=== PATIENT | male | born 1950 | race Caucasian/White ===

== ENCOUNTER 2023-10-19 11:35 | Inpatient (IN) | payer OTHER ==
--- OUTSIDE RECORDS SUMMARY | 2023-10-19 11:38 | XMS REPORT | Clinical Summary ---
Author Name Unknown Organization [facility] Address [address] [place] [address] Care Team Providers Care Machine Tool Technology Instructor Name Role Phone Petra Faustin Primary Care Provider [phone] Allergies Active Allergy Reactions Criticality Noted Date Comments Aspirin 10/02/2018 Iodinated Contrast Media Hives,Rash,Swelling Low 11/22/1985 Iodine 10/02/2018 Other - Food Shortness Of Breath,Swelling,Rash High 09/03/2000 Peanut derivatives Shellfish Containing Products 03/02/2022 Joint pain Medications Medication Sig Dispensed Refills Start Date End Date Status rosuvastatin (CRESTOR) 10 mg tablet Take 10 mg by mouth at bedtime. 0 Active warfarin (COUMADIN) 3 mg tablet Take 3 mg by mouth 3 (three) times a day. 0 Active telmisartan (MICARDIS) 40 mg tablet Take 40 mg by mouth daily. 0 Active multivitamin capsule Take 1 capsule by mouth daily. 0 Active Active Problems Problem Noted Date Diagnosed Date Personal history of colonic polyp 12/17/2018 Overview: Added automatically from request for surgery [id number] Screening colonoscopy 10/02/2018 Immunizations Name Administration Dates Next Due Moderna SARS-CoV-2 Vaccination 12/12/2021,2020,11/12/2020,10/18/2020 Surgical History Surgery Date Site/Laterality Comments COLONOSCOPY 09/10/2007 - 09/09/2008 At an outside facility CARDIAC VALVE REPLACEMENT 09/10/2005 - 09/09/2006 OTHER SURGICAL HISTORY Artificial heart valve PA COLONOSCOPY FLX DX W/COLLJ SPEC WHEN PFRMD 12/06/2018 N/A Procedure: DIAGNOSTIC FLEXIBLE COLONOSCOPY PROXIMAL TO SPLENIC FLEXURE; Surgeon: Jaime Estrada MD; Location: MAIN ENDOSCOPY; Service: GASTROENTEROLOGY EYE SURGERY PILONIDAL CYST DRAINAGE 1972 PA COLONOSCOPY FLX DX W/COLLJ SPEC WHEN PFRMD 05/16/2022 N/A Procedure: DIAGNOSTIC FLEXIBLE COLONOSCOPY PROXIMAL TO SPLENIC FLEXURE; Surgeon: Jaime Estrada MD; Location: MAIN ENDOSCOPY; Service: GASTROENTEROLOGY Medical History Medical History Date Comments Hypertension 11/23/2007 Hyperlipidemia 11/23/2003 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 Obstructive sleep apnea Pneumonia Encounter for blood transfusion Family History Medical History Relation Name Comments Kidney cancer Brother Bridger lafleur Prostate cancer Brother Bridger lafleur Relation Name Status Comments Brother Bridger lafleur Social History Tobacco Use Types Packs/Day Years Used Date Smoking Tobacco: Former Cigarettes 0.5 10 0 11/22/1969 - 11/23/1979 Smokeless Tobacco: Never Alcohol Use Standard Drinks/Week Comments Yes 0 (1 standard drink = 0.6 oz pur e alcohol) Sex and Gender Information Value Date Recorded Sex Assigned at Male 12/18/2021 9:13 AM CDT Gender Identity Male 12/18/2021 9:13 AM CDT Sexual Orientation Straight 02/08/2022 11 :53 AM CDT Job Start Date Occupation Industry Not on file Not on file Not on file Obstetrics History Plan of Treatment Upcoming Encounters Date Type Department Care Team Description 05/19/2025 Hospital Encounter [facility] [address] [place] [address], 5th [place] [address] Jaime Estrada MD [facility] [place] [address] Scheduled Procedures Name Priority Associated Diagnoses Date/Ti me DIAGNOSTIC FLEXIBLE COLONOSC OPY PROXIMAL TO SPLENIC FLEXURE Personal history of colonic polyp Health Maintenance Due Date Last Done Comments COVID-19 Vaccination (5 20 23-24 season) 2023 12/12/2021, 07/11/2021, 11/12/2020, Additional history exists Advance Directives Documents on File Type Date Recorded Patient Tuckpointer Expl anation Advance Directives: Living Will 12/09/2018 Directive to Physici ans and Family or Surrogates-Living Will Advance Directives: Medical Power of Sheet Metal Worker Helper 12/09/2018 Medical Power of Att orney Care Teams Machine Tool Technology Instructor Relationship Specialty Start Date End Date Petra Faustin [address] [place] [address] PCP - General 10/02/18
[2023-10-19] MEDS ORDERED: NA CHLORIDE 0.9% 1,000 ML ONE ×2 (13:08→20:28)
[2023-10-19] MEDS ORDERED: PANTOPRAZOLE 40 MG INJ ONE (13:08)
[2023-10-19 13:36] LABS: Absolute Lymphocytes (CBC) 1.7 K/uL (0.7-4.9); Hematocrit 32.3 % (39.6-49.0); Lymphocytes % 14.6 % (15.3-44.8); MCV 89.3 fL (80-100); MPV 9.2 fL (7.6-11.3); Platelets 247 thou/uL (152-406); RBC Red Blood Cell Count 3.62 M/uL (4.33-5.43)
[2023-10-19 13:41] LABS: Protime INR 1.98
[2023-10-19 13:44] LABS: Albumin 3.5 g/dL (3.4-5.0); Bilirubin Total 0.5 mg/dL (0.2-1.0); Potassium 4.3 mEq/L (3.5-5.1)
--- NOTE | 2023-10-19 14:09 | RAD REPORT ---
EXAM DESCRIPTION: CT - Abdomen Pelvis Wo Contrast - 10/19/2023 1:54 pm CLINICAL HISTORY: Abdominal pain. ABD PAIN COMPARISON: CT ABD PELVIS W CONTRAST dated 08/03/2007 TECHNIQUE: CT imaging of the abdomen and pelvis was performed without contrast. Solid organ, bowel a nd vascular assessment is limited due to lack of IV and oral contrast. All CT scans are performed using dose optimization technique as appropriate and may include automated exposure control or mA/KV adjustment according to patient size. FINDINGS: The lower lung duffy are clear. The liver, spleen, pancreas, adrenal glands and right kidney are within normal limits for a limited n on-contrast examination.8 cm left renal cyst, benign in appearance. No bowel obstruction, free air, free fluid or abscess. Moderate stool is present throughout the colon . Diverticulosis coli sigmoid colon. The appendix is normal. Mild mucosal and wall thickening of rect um. The osseous structures are within normal limits. IMPRESSION: Mild rectal wall thickening and mucosal thickening could be related to proctitis. No pne umatosis coli. Follow-up colonoscopy could be useful to further evaluate. Sigmoid diverticulosis coli. A limited non-contrast examination was performed as detailed.
[2023-10-19 14:42] LABS: Specific Gravity 1.027 (1.005-1.030); Urine Bacteria <20 /HPF (<20); Urine Bilirubin NEGATIVE (Negative); Urine Blood 3+ (OVER) (Negative); Urine Clarity Extremely Turbid (Clear); Urine Color Light-Orange (Yellow); Urine Glucose NEGATIVE (Negative); Urine Mucus Slight /HPF (None Seen); Urine Protein 1+ (Negative); Urine RBC >50 /HPF (None Seen); Urine Urobilinogen 1+ (Normal); Urine pH 5.5 (5.0-7.0)
--- NOTE | 2023-10-19 15:37 | EDPHYS ---
Physician Documentation [facility] Name: Nadia Lafleur Age: 73 yrs Sex: Male : 1950 Arrival Date: 10/19/2023 Time: 11:35 Bed 19 Private MD: ED Physician Evaristo Pleitez HPI: 10/19 12:14 This 73 yrs old Male presents to ER via Unassigned with complaints of Rectal ec2 Bleeding. 12:14 Patient arrives today for evaluation of rectal bleeding. Reports that he has been ec2 experiencing several days of rectal bleeding he describes as bright red blood per rectum. Patient reports minimal abdominal pain, he reports he is on Lovenox as well as warfarin, he is bridging over to his warfarin. He recently had a biopsy of his prostate which is why he was off of his medication. Patient also has a history of a artificial heart valve. Reports some occasional lightheadedness as well.. Historical: - Allergies: 13:20 Aspirin; mb9 13:20 peanut oil; mb9 13:20 Contrast dye; mb9 - Home Meds: 13:20 warfarin 4 mg Oral tablet 1 tab daily [Active]; telmisartan 40 mg oral tablet 1 tab mb9 daily [Active]; rosuvastatin 10 mg oral tablet 1 tab daily [Active]; - PMHx: 13:20 Hypertensive disorder; mb9 - PSHx: 13:20 Bicuspid Valve; mb9 - Immunization history:: Adult Immunizations up to date. - Social history:: Smoking status: Patient denies any tobacco usage or history of. ROS: 12:14 Constitutional: as per hpi ec2 Exam: 12:14 Constitutional: GEN: NAD Head: atraumatic Eyes: EOMI Ears: External ears are ec2 normal. CV: Tachycardia LUNGS: no respiratory distress ABD: non-distended, soft, nontender, not guarding, not rigid SKIN: no evidence of rashes MSK: no evidence of trauma NEURO: moves all extremities equally Vital Signs: 12:51 BP 102 / 74; Pulse 132; Resp 20; Temp 98.5(O); Pulse Ox 96% on R/A; hb 13:22 BP 116 / 66; Pulse 110; Resp 16; Pulse Ox 100% on R/A; Weight 113.4 kg; Height 6 ft. 2 mb9 in. ; 14:44 BP 117 / 62; Pulse 99; Resp 18; Pulse Ox 100% on R/A; mb9 16:05 BP 102 / 71; Pulse 106; Resp 16; Pulse Ox 100% ; mb9 17:00 BP 98 / 62; Pulse 115; Resp 18; Pulse Ox 99% on R/A; mb9 18:57 BP 117 / 75; Pulse 114; Resp 18; Pulse Ox 98% on R/A; mb9 19:30 BP 111 / 61; Pulse 117; Resp 19; Pulse Ox 98% on R/A; Pain 0/10; tm6 20:30 BP 119 / 64; Pulse 111; Resp 19; Pulse Ox 99% on R/A; tm6 21:50 BP 117 / 61; Pulse 113; Resp 13; Temp 98.4(TE); Pulse Ox 98% on R/A; Pain 0/10; tm6 21:55 BP 120 / 69; Pulse 115; Resp 17; Temp 98.4(TE); Pulse Ox 99% on R/A; tm6 22:00 BP 119 / 62; Pulse 114; Resp 14; Temp 98.2(TE); Pulse Ox 98% on R/A; tm6 22:15 BP 121 / 77; Pulse 117; Resp 12; Temp 98(TE); Pulse Ox 98% on R/A; tm6 13:22 Body Mass Index 32.10 (113.40 kg, 187.96 cm) mb9 19:30 Pain Scale: Adult tm6 21:50 Pain Scale: Adult tm6 MDM: 12:06 Patient medically screened. ec2 12:14 Data reviewed: vital signs. ED course: Patient arrives today for rectal bleeding as ec2 well as lightheadedness. Examination remarkable for a reassuring abdominal examination, does have some tachycardia noted. Will obtain lab work, CT imaging, type and screen. Currently considering diverticulosis, brisk upper GI bleed. Additionally considering anemia. Will give the patient Protonix as well.. 14:25 ED course: CBC shows slight anemia with hemoglobin 11.1, metabolic profile is ec2 reassuring. INR is 1.98. CT imaging shows sigmoid diverticulosis. This to be consistent with the patient's rectal bleeding. . 15:35 ED course: On reassessment patient reports improvement in his symptoms, does have some ec2 anemia, does have diverticulosis as well as the initial tachycardia, will admit the patient for reassessment and GI consultation. Patient is followed by Dr. Gayle, he I called him however he is out of town and will admit to the hospitalist. Discussed case with hospitalist, pending admission.. 10/19 12:14 Order name: CBC with Diff; Complete Time: 14:24 ec2 10/19 12:14 Order name: CMP; Complete Time: 14:24 ec2 10/19 12:14 Order name: Lipase; Complete Time: 14:24 ec2 10/19 12:14 Order name: Urinalysis w/ reflexes; Complete Time: 15:02 ec2 10/19 12:14 Order name: Type And Screen ec2 10/19 12:16 Order name: PT-INR; Complete Time: 14:24 ec2 10/19 12:16 Order name: Ptt, Activated; Complete Time: 14:24 ec2 10/19 14:55 Order name: Urine Culture EDMS 10/19 17:14 Order name: Basic Metabolic Panel EDMS 10/19 17:14 Order name: Basic Metabolic Panel EDMS 10/19 17:14 Order name: Basic Metabolic Panel EDMS 10/19 17:14 Order name: Basic Metabolic Panel EDMS 10/19 17:14 Order name: Basic Metabolic Panel EDMS 10/19 17:14 Order name: Basic Metabolic Panel EDMS 10/19 17:14 Order name: CBC with Automated Diff EDMS 10/19 17:14 Order name: CBC with Automated Diff EDMS 10/19 17:14 Order name: CBC with Automated Diff EDMS 10/19 17:14 Order name: CBC with Automated Diff EDMS 10/19 17:14 Order name: CBC with Automated Diff EDMS 10/19 17:14 Order name: CBC with Automated Diff EDMS 10/19 17:14 Order name: Magnesium EDMS 10/19 17:14 Order name: Magnesium EDMS 10/19 17:14 Order name: Magnesium EDMS 10/19 17:14 Order name: Magnesium EDMS 10/19 17:14 Order name: Magnesium EDMS 10/19 17:14 Order name: Magnesium EDMS 10/19 17:14 Order name: Phosphorus EDMS 10/19 17:14 Order name: Phosphorus EDMS 10/19 17:14 Order name: Phosphorus EDMS 10/19 17:14 Order name: Phosphorus EDMS 10/19 17:14 Order name: Phosphorus EDMS 10/19 17:14 Order name: Phosphorus EDMS 10/19 19:45 Order name: CBC with Diff ap3 10/19 20:06 Order name: FFP kdr 10/19 20:06 Order name: PRBC kdr 10/19 20:29 Order name: CBC with Automated Diff EDMS 10/19 13:55 Order name: Abdomen ; Complete Time: 14:24 EDMS 10/19 17:14 Order name: CONS Physician Consult EDMS 10/19 12:14 Order name: IV Saline Lock; Complete Time: 13:19 ec2 10/19 12:14 Order name: Labs collected and sent; Complete Time: 13:19 ec2 Administered Medications: 13:19 Drug: NS 0.9% IV 1000 ml IV at 1 bolus Per protocol; 1000 mL bolus Route: IV; Rate: 1 mb9 bolus; Site: right antecubital; 15:13 Follow up: Response: No adverse reaction mb9 13:19 Drug: Pantoprazole IVP 80 mg IVP once Route: IVP; Site: right antecubital; mb9 15:13 Follow up: Response: No adverse reaction mb9 20:39 Drug: NS 0.9% IV 1000 ml IV at 1 bolus Per protocol; 1000 mL bolus Route: IV; Rate: 1 tm6 bolus; Site: right antecubital; 20:39 Drug: Phytonadione IM 10 mg IM once Route: IM; Site: left deltoid; tm6 Disposition Summary: 10/19/23 15:36 Hospitalization Ordered Notes: Hospitalization Status: Inpatient Admission ec2 Condition: Stable ec2 Problem: new ec2 Symptoms: have improved ec2 Bed/Room Type: Standard ec2 Provider: Srinath Nix(10/19/23 16:03) ec2 Location: Intensive Care Unit(10/19/23 22:14) vc1 Room Assignment: 2-(10/20/23 02:26) vc1 Diagnosis - Diverticulosis of large intestine without perforation or abscess with bleeding ec2 - Anemia, unspecified ec2 Forms: - Medication Reconciliation Form ec2 - SBAR form ec2 - Leadership Thank You Letter ec2 Signatures: Dispatcher [employer] [facility] Zeke Mars MD MD kdr Botello, Elizabeth eb Calcote, Vanessa, RN RN vc1 Ida Daniel, RN RN mb9 Evaristo Pleitez MD MD ec2 Olamide Kaur RN RN tm6 Corrections: (The following items were deleted from the chart) 13:55 12:14 Abdomen Pelvis W Con+CT.RAD.BRZ ordered. EDMS EDMS 15:39 15:35 ED course: On reassessment patient reports improvement in his symptoms, does have ec2 some anemia, does have diverticulosis as well as the initial tachycardia, will admit the patient for reassessment and GI consultation. Discussed case with Dr. Gayle, his primary care doctor will admit the patient for continued cares.. ec2 16:03 15:36 J Carlos Gayle ec2 ec2 17:26 15:36 ec2 eb 22:14 15:36 Telemetry/MedSurg (Inpatient) ec2 vc1 22:14 17:26 207 eb vc1 10/20 02:26 02 22:14 vc1 vc1
--- NOTE | 2023-10-19 15:37 | ER ---
Nurse's Notes [facility] Name: Nadia Lafleur Age: 73 yrs Sex: Male : 1950 Arrival Date: 10/19/2023 Time: 11:35 Bed 19 Private MD: Diagnosis: Diverticulosis of large intestine without perforation or abscess with bleeding;Anemia, unspecified Presentation: 10/19 12:51 Chief complaint: Blood in stool x 3 days, dizzy last night. Had prostate biopsy a week hb ago, blood in urine stopped 4 days after. Taking Lovenox. 12:51 Coronavirus screen: At this time, the client does not indicate any symptoms associated hb with coronavirus-19. Ebola Screen: No symptoms or risks identified at this time. Initial Sepsis Screen: Does the patient meet any 2 criteria? No. Patient's initial sepsis screen is negative. Does the patient have a suspected source of infection? No. Patient's initial sepsis screen is negative. Risk Assessment: Do you want to hurt yourself or someone else? Patient reports no desire to harm self or others. Onset of symptoms was October 17, 2023. 12:51 Method Of Arrival: Ambulatory hb 12:51 Acuity: PATRICIA 2 hb Historical: - Allergies: 13:20 Aspirin; mb9 13:20 peanut oil; mb9 13:20 Contrast dye; mb9 - Home Meds: 13:20 warfarin 4 mg Oral tablet 1 tab daily [Active]; telmisartan 40 mg oral tablet 1 tab mb9 daily [Active]; rosuvastatin 10 mg oral tablet 1 tab daily [Active]; - PMHx: 13:20 Hypertensive disorder; mb9 - PSHx: 13:20 Bicuspid Valve; mb9 - Immunization history:: Adult Immunizations up to date. - Social history:: Smoking status: Patient denies any tobacco usage or history of. Screenin:26 [facility] ED Fall Risk Assessment (Adult) History of falling in the last 3 months, mb9 including since admission No falls in past 3 months (0 pts) Confusion or Disorientation No (0 pts) Intoxicated or Sedated No (0 pts) Impaired Gait No (0 pts) Mobility Assist Device Used No (0 pt) Altered Elimination No (0 pt) Score/Fall Risk Level 0 - 2 = Low Risk Oriented to surroundings, Maintained a safe environment, Educated pt \T\ family on fall prevention, incl call for assistance when getting out of bed. Abuse screen: Denies threats or abuse. Nutritional screening: No deficits noted. Tuberculosis screening: No symptoms or risk factors identified. 16:10 [facility] ED Fall Risk Assessment (Adult) History of falling in the last 3 months, mb9 including since admission Yes- physiologic fall (2 pts) Confusion or Disorientation No (0 pts) Intoxicated or Sedated No (0 pts) Impaired Gait No (0 pts) Mobility Assist Device Used Yes (1 pt) Altered Elimination No (0 pt) Score/Fall Risk Level 3 or more points = High Risk Oriented to surroundings, Maintained a safe environment, Educated pt \T\ family on fall prevention, incl call for assistance when getting out of bed, Hourly rounding (assess needs \T\ fall precautionary measures) done. Assessment: 13:25 General: Appears in no apparent distress. Behavior is calm, cooperative. Pain: Denies mb9 pain. Neuro: Bradford Agitation-Sedation Scale (RASS): 0 - Alert and Calm Level of Consciousness is awake, alert, obeys commands, Oriented to person, place, time, situation, Appropriate for age. Neuro: Reports dizziness. Cardiovascular: Heart tones S1 S2 present Patient's skin is warm and dry. Rhythm is sinus tachycardia. Respiratory: Airway is patent Respiratory effort is even, unlabored, Respiratory pattern is regular, symmetrical, Breath sounds are clear bilaterally. GI: Abdomen is round non-distended, Bowel sounds present X 4 quads. Abd is soft and non tender X 4 quads. Reports rectal bleeding. : No signs and/or symptoms were reported regarding the genitourinary system. Derm: Skin is pink, warm \T\ dry. Musculoskeletal: Range of motion: intact in all extremities. 15:00 Reassessment: No changes from previously documented assessment. Patient and/or family mb9 updated on plan of care and expected duration. Pain level reassessed. Patient is alert, oriented x 3, equal unlabored respirations, skin warm/dry/pink. 16:05 Reassessment: Assisted pt to restroom. Pt pulled call light and this nurse answered. Pt mb9 stood up, became dizzy, pale, and diaphoretic. This nurse assisted pt to ground. Dr. Pleitez, Tomas Mathew, and Alexa Hussein helped assist pt back to bed. Pt denies pain and did not hit head. Airway is patent, respirations are even and unlabored, and pt is AAOx4. 16:36 Reassessment: Patient is alert, oriented x 3, equal unlabored respirations, skin mb9 warm/dry/pink. Neuro: Level of Consciousness is awake, alert, obeys commands, Oriented to person, place, time, situation, Appropriate for age Pupils are PERRLA. 17:35 Reassessment: No changes from previously documented assessment. Patient and/or family mb9 updated on plan of care and expected duration. Pain level reassessed. Patient is alert, oriented x 3, equal unlabored respirations, skin warm/dry/pink. 18:59 Reassessment: No changes from previously documented assessment. Patient and/or family mb9 updated on plan of care and expected duration. Pain level reassessed. Patient is alert, oriented x 3, equal unlabored respirations, skin warm/dry/pink. 19:30 Reassessment: while cleaning patient, patient passed large blood clot per rectum, tm6 followed by continued stream of bright red blood. notified. H\T\H repeated. 21:30 Reassessment: gel foam applied in rectum, per Dr. Franz and Dr. Yang. tm6 Vital Signs: 12:51 BP 102 / 74; Pulse 132; Resp 20; Temp 98.5(O); Pulse Ox 96% on R/A; hb 13:22 BP 116 / 66; Pulse 110; Resp 16; Pulse Ox 100% on R/A; Weight 113.4 kg; Height 6 ft. 2 mb9 in. ; 14:44 BP 117 / 62; Pulse 99; Resp 18; Pulse Ox 100% on R/A; mb9 16:05 BP 102 / 71; Pulse 106; Resp 16; Pulse Ox 100% ; mb9 17:00 BP 98 / 62; Pulse 115; Resp 18; Pulse Ox 99% on R/A; mb9 18:57 BP 117 / 75; Pulse 114; Resp 18; Pulse Ox 98% on R/A; mb9 19:30 BP 111 / 61; Pulse 117; Resp 19; Pulse Ox 98% on R/A; Pain 0/10; tm6 20:30 BP 119 / 64; Pulse 111; Resp 19; Pulse Ox 99% on R/A; tm6 21:50 BP 117 / 61; Pulse 113; Resp 13; Temp 98.4(TE); Pulse Ox 98% on R/A; Pain 0/10; tm6 21:55 BP 120 / 69; Pulse 115; Resp 17; Temp 98.4(TE); Pulse Ox 99% on R/A; tm6 22:00 BP 119 / 62; Pulse 114; Resp 14; Temp 98.2(TE); Pulse Ox 98% on R/A; tm6 22:15 BP 121 / 77; Pulse 117; Resp 12; Temp 98(TE); Pulse Ox 98% on R/A; tm6 13:22 Body Mass Index 32.10 (113.40 kg, 187.96 cm) mb9 19:30 Pain Scale: Adult tm6 21:50 Pain Scale: Adult tm6 ED Course: 11:40 Patient arrived in ED. ts1 11:43 Evaristo Pleitez MD is Attending Physician. ec2 13:03 Triage completed. hb 13:03 Ida Daniel RN is Primary Nurse. mb9 13:03 Arm band placed on. hb 13:03 Arm band placed on. mb9 13:19 CBC with Diff Sent. mb9 13:19 Ptt, Activated Sent. mb9 13:19 PT-INR Sent. mb9 13:19 Type And Screen Sent. mb9 13:19 CMP Sent. mb9 13:19 Lipase Sent. mb9 13:20 Inserted saline lock: 18 gauge in right antecubital area, using aseptic technique. mb9 13:26 Placed in gown. Bed in low position. Call light in reach. Side rails up X 1. Client mb9 placed on continuous cardiac and pulse oximetry monitoring. NIBP monitoring applied. nurse monitoring on. 13:26 No provider procedures requiring assistance completed. mb9 13:37 Inserted saline lock: 20 gauge in right hand, using aseptic technique. mb9 13:55 Abdomen In Process Unspecified. EDMS 15:36 J Carlos Gayle MD is Hospitalizing Provider. ec2 16:03 Srinath Nix is Hospitalizing Provider. ec2 16:35 Patient admitted, IV remains in place. mb9 18:59 Report given to MAXIMILIAN Quiñonez. mb9 10/20 02:14 Primary Nurse role handed off by Ida Daniel, MAXIMILIAN ap3 04:25 Olamide Kaur, RN is Primary Nurse. tm6 Administered Medications: 10/19 13:19 Drug: NS 0.9% IV 1000 ml IV at 1 bolus Per protocol; 1000 mL bolus Route: IV; Rate: 1 mb9 bolus; Site: right antecubital; 15:13 Follow up: Response: No adverse reaction mb9 13:19 Drug: Pantoprazole IVP 80 mg IVP once Route: IVP; Site: right antecubital; mb9 15:13 Follow up: Response: No adverse reaction mb9 20:39 Drug: NS 0.9% IV 1000 ml IV at 1 bolus Per protocol; 1000 mL bolus Route: IV; Rate: 1 tm6 bolus; Site: right antecubital; 20:39 Drug: Phytonadione IM 10 mg IM once Route: IM; Site: left deltoid; tm6 Medication: 15:14 VIS not applicable for this client. mb9 Outcome: 15:36 Decision to Hospitalize by Provider. ec2 10/20 00:43 Admitted to ER Hold. Please see [facility] for further documentation. tm6 Condition: unchanged Instructed on the need for admit, 04:25 Admitted to ICU accompanied by nurse, via stretcher, room 2, on monitor, with chart, tm6 Report called to Yayo YAO 04:25 Patient left the ED. tm6 Signatures: Dispatcher [employer] Pamela Lujan RN Malina Diaz RN RN [email or web address] Fredy, Ida Powell RN RN mb9 Karine Moreau PAS PAS ts1 Evaristo Pleitez MD MD ec2 Olamide Kaur RN RN tm6 Corrections: (The following items were deleted from the chart) 10/19 13:03 13:01 Chief complaint: Blood in stool x 3 days, dizzy last night. Had prostate biopsy a hb week ago, blood in urine stopped 4 days after. Taking Lovenox. hb
--- NOTE | 2023-10-19 16:28 | P.HP ---
Certification for Inpatient Patient admitted to: Observation With expected LOS: <2 Midnights Patient will require the following post-hospital care: None Practitioner: I am a practitioner with admitting privileges, knowledge of patient current condition, hospital course, and medical plan of care. Services: Services provided to patient in accordance with Admission requirements found in Title 42 Section 412.3 of the Code of Federal Regulations Patient History Date of Service: 10/19/23 Reason for admission: GI bleed, diverticulosis History of Present Illness: Nadia Zavala is a 73-year-old male with past medical history of hypertensive disorder, HLD, mechanical AVR on coumadin who presented to the ED with complaints of rectal bleeding. He reports experiencing several days of rectal bleeding he describes as bright red blood from the rectum. He has minimal abdominal pain. He reports he is on Lovenox as well as coumadin, he is bridging over to coumadin since stopping for his prostate procedure a week ago. He had a syncopal episode while in the ED in the bathroom. His H/H is stable, Dr. Franz has been consulted. He also has a history of mechanical AVR in 2005 requiring Coumadin, he self checks his INR weekly. We will hold the coumadin for now. Laboratory evaluation WBC 11.8, H&H 11/32, platelets 247, PT 21.4/INR 1.98, APTT 39.1, sodium 135, potassium 4.3, serum glucose 143, UA with extremely turbid in color, blood 3+, urobilinogen 1+, leukocyte esterase 75, RBC greater than 50, WBC 20-50. CT abdomen pelvis report "Mild rectal wall thickening and mucosal thickening could be related to proctitis. No pneumatosis coli. Follow-up colonoscopy could be useful to further evaluate. Sigmoid diverticulosis coli. A limited non-contrast examination was performed as detailed" Initial vitals BP 102 / 74; Pulse 132; Resp 20; Temp 98.5(O); Pulse Ox 96% on R/A Nadia will be admitted to hospitalist service for further evaulation and hesham atment of GI bleed and diverticulosis. Allergies aspirin Allergy (Verified 10/19/23 18:50) unknown peanut oil Allergy (Verified 10/19/23 18:50) unknown contrast dye Allergy (Uncoded 10/19/23 18:50) unknown - Past Medical/Surgical History -: HTN -: HLD -: Diverticulosis -: GI bleed -: Prostate disorder -: mechanical AVR - Family History Family History: Reviewed- Non-Contributory - Social History Smoking Status: Unknown if ever smoked Alcohol use: No CD- Drugs: No Caffeine use: Yes Review of Systems Gastrointestinal: Abdominal Pain, Melena Neurological: Other (syncope) Physical Examination - Physical Exam General: Alert, In no apparent distress, Oriented x3 HEENT: Atraumatic, Normocephalic, PERRLA Neck: Supple, 2+ carotid pulse no bruit, JVD not distended Respiratory: Clear to auscultation bilaterally, Normal air movement Cardiovascular: Normal pulses, Regular rate/rhythm, Normal S1 S2, Other, Systolic murmur (valve click) Capillary refill: <2 Seconds Gastrointestinal: Normal bowel sounds, Soft and benign Musculoskeletal: No clubbing, No swelling, No contractures Integumentary: No rashes, No breakdown, No significant lesion Neurological: Normal speech, Normal strength at 5/5 x4 extr, Normal tone - Studies Laboratory Data (last 24 hrs) 10/19/23 10/19/23 10/19/23 13:15 13:15 13:15 WBC 11.80 H Hgb 11.1 L Hct 32.3 L Plt Count 247 PT 21.4 H INR 1.98 APTT 39.1 H Sodium 135 L Potassium 4.3 BUN 13 Creatinine 1.04 Glucose 143 H Total Bilirubin 0.5 AST 14 L ALT 46 Alkaline Phosphatase 42 L Lipase 21 Assessment and Plan - Plan Assessment and plan GI bleed with sigmoid diverticulosis History prostate biopsy one week ago Syncope -CT abdomen pelvis report "Mild rectal wall thickening and mucosal thickening could be related to proctitis. No pneumatosis coli. Follow-up colonoscopy could be useful to further evaluate. Sigmoid diverticulosis coli. A limited non-contr ast examination was performed as detailed" -stopped coumadin for prostate biopsy, [employer]ER coumadin lovenox bridge for therapeutic INR, INR 1.98 now -H&H -UA with extremely turbid in color, blood 3+, urobilinogen 1+, leukocyte esterase 75, RBC greater than 50, WBC 20-50.- likely due to prostate biopsy -Type and screen when in ER -Dr. Franz consulted -N.p.o. at midnight -history of colonoscopy in 2002 -He fell while using the bathroom in the ED -fall risk History of mechanical AVR -Procedure in 2006 -Will hold Coumadin for now -Telemetry Hyperglycemia Serum glucose 143 no history of diabetes A1C pending monitor in AM labs History of hypertension/ HLD -Restart home medication when appropriate DVT ppx SCD full code LOS 2-3 days Discharge Plan: Home Plan to discharge in: 48 Hours - Advance Directives Does patient have a Living Will: Yes Does patient have a Durable POA for Healthcare: Yes Time Spent Managing Pts Care (In Minutes): 50
[2023-10-19 20:24] LABS: Absolute Lymphocytes (CBC) 2.2 K/uL (0.7-4.9); Hematocrit 25.9 % (39.6-49.0); Lymphocytes % 19.8 % (15.3-44.8); MCV 88.7 fL (80-100); MPV 9.3 fL (7.6-11.3); Platelets 229 thou/uL (152-406); RBC Red Blood Cell Count 2.93 M/uL (4.33-5.43)
[2023-10-19] MEDS ORDERED: VITAMIN K (ADULT) 10 MG/ML ONE (20:35)
[2023-10-19] MEDS ORDERED: NA CHLORIDE 0.9% 250 ML ONE ×2 (21:25→23:37)
[2023-10-20] MEDS ORDERED: NA CHLORIDE 0.9% 250 ML ONE (02:15)
[2023-10-20 08:18] LABS: Hematocrit 25.9 % (39.6-49.0)
[2023-10-20 08:26] LABS: Protime INR 1.58
--- NOTE | 2023-10-20 11:56 | P.PN ---
Date of Service: 10/20/23 Subjective Transfusion overnight Continued blood loss Dr. Garza packed rectum with Surgicel Plan to continue to monitor H/H ROS 10 point ROS as noted above, otherwise negative Physical Exam General: AAOx3 , NAD, Calm HEENT: Atraumatic, Normocephalic, PERRLA Neck: Supple, 2+ carotid pulse no bruit, JVD not distended Respiratory: Clear to auscultation bilaterally, Normal air movement Cardiovascular: Normal pulses, RRR, Normal S1 S2, Other, Systolic murmur (valve click) Capillary refill: <2 Seconds Gastrointestinal: Normoactive bowel sounds, Soft and benign on palpation Musculoskeletal: No clubbing, No swelling, No contractures Integumentary: No rashes, No breakdown, No significant lesion Neurological: Normal speech, Normal strength at 5/5 x4 extr, Normal tone Vitals Reviewed Problem list GI bleed with sigmoid diverticulosis History prostate biopsy one week ago Syncope History of mechanical AVR Hyperglycemia Assessment and Plan Hemachezia with sigmoid diverticulosis History prostate biopsy one week ago Syncope Blood loss anemia -CT abdomen pelvis report "Mild rectal wall thickening and mucosal thickening could be related to proctitis. No pneumatosis coli. Follow-up colonoscopy could be useful to further evaluate. Sigmoid diverticulosis coli. 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 Franz consulted- recommends to packing rectum after BM -N.p.o. -history of colonoscopy in 2002 -He fell while using the bathroom in the ED-fall risk -Dr. Garza consulted for blood loss per rectum, likely d/t prostate biopsy- surgicel packed in rectum -2 units PRBC and one unit FFP OVN (10/19) History of mechanical AVR Tachycardia -Procedure in 2005 -Will hold Coumadin for now- plan to restart at discharge -Telemetry -Likely heparin gtt when INR < 1.3 Hyperglycemia Serum glucose 143 no history of diabetes A1C pending monitor in AM labs History of hypertension/ HLD -Restart home medication when appropriate DVT ppx SCD full code LOS 2-3 days Discharge Plan: Home Plan to discharge in: 48 Hours <Amelia Carlton - Last Filed: 10/20/23 18:01> Patient seen and examined with Ms. Carlton. Plan of care discussed with Brandt. Rectal bleed likely related to prostate biopsy. No active bleed since Gelfoam was applied to the rectal area. Plan of care also discussed with general surgery Dr. Garza and GI Dr. Franz. Patient Urologist Dr. Gauthier or his urologist center consultant paged via his phone service and waiting for response. Hold anticoagulation. Monitor for active bleeding. Monitor H&H. <allison barker - Last Filed: 10/21/23 16:52>
[2023-10-20 13:53] LABS: Hematocrit 25.8 % (39.6-49.0)
[2023-10-20 14:07] LABS: Absolute Lymphocytes (CBC) 1.7 K/uL (0.7-4.9); Hematocrit 26.6 % (39.6-49.0); Lymphocytes % 21.5 % (15.3-44.8); MCV 89.8 fL (80-100); MPV 9.7 fL (7.6-11.3); Platelets 160 thou/uL (152-406); RBC Red Blood Cell Count 2.96 M/uL (4.33-5.43)
[2023-10-20 17:13] LABS: Hematocrit 25.5 % (39.6-49.0)
[2023-10-20 17:39] LABS: Phosphorus 2.2 mg/dL (2.5-4.9)
--- NOTE | 2023-10-20 17:42 | P.PN ---
Subjective Date of Service: 10/20/23 Chief Complaint: Hematochezia, bleed - s/p prostate biopsies, vs GI bleed, diverticulosis Subjective: Improving (No hematochezia since gel foam placed per rectum last night. Hgb now stable. Patient affable and wants to eat.), Other (Artificial St. Vel AVR) Review of Systems 10-point ROS is otherwise unremarkable General: Weakness (Improved.) Physical Examination - Vital Signs Temperature: 96.7 F Blood Pressure: 121/63 Pulse: 102 Respirations: 18 Pulse Ox (%): 98 - Physical Exam General: Alert, In no apparent distress, Oriented x3, Cooperative HEENT: Atraumatic, Normocephalic, PERRLA, EOMI Neck: Supple Respiratory: Clear to auscultation bilaterally Cardiovascular: No edema Neurological: Normal speech, Normal strength at 5/5 x4 extr Assessment And Plan - Current Problems (Diagnosis) (1) Hematochezia Current Visit: Yes Status: Acute (2) Anemia due to blood loss, acute Current Visit: Yes Status: Acute (3) Abnormal prostate biopsy Current Visit: Yes Status: Acute - Plan REC: 1) continue to place gel foam NM after each bowel movement 2) urology f/u 3) hold Coumadin 4) possible Heparin drip or Lovenox when INR <=1.3 (now at 1.58)
[2023-10-20 20:26] VITALS: BMI 35.1
[2023-10-20 21:13] LABS: Hematocrit 25.1 % (39.6-49.0)
[2023-10-21 04:39] LABS: Hematocrit 26.4 % (39.6-49.0); Lymphocytes % 25.4 % (15.3-44.8); MCV 90.4 fL (80-100); MPV 8.7 fL (7.6-11.3); Platelets 179 thou/uL (152-406); RBC Red Blood Cell Count 2.92 M/uL (4.33-5.43)
[2023-10-21 04:45] LABS: Protime INR 1.27
[2023-10-21 04:54] LABS: Phosphorus 2.7 mg/dL (2.5-4.9); Potassium 4.2 mEq/L (3.5-5.1)
[2023-10-21] MEDS: HEPARIN 5000 UNIT/ML 1 ML VIAL SQ SCH (08:43)
[2023-10-21] MEDS: HEPARIN/D5W 25,000 UNIT/500 ML BAG IV SCH (11:36)
--- NOTE | 2023-10-21 12:48 | CON ---
Date of Consultation: 10/19/2023 Brief History Of Present Illness: The patient is a 73-year-old male who has a past medical history o f hypertension, hyperlipidemia, and a Saint Vel mechanical mitral valve he had placed for bicuspid m itral valve years ago. He has been maintained on Coumadin with this issue. He comes in 1 week after a prostate biopsy by Dr. Gauthier in his clinic approximately a week ago. He states that he had mul tiple passes approximately he thinks 13-14 passes and biopsies transrectally of his prostate performe d in Dr. Gauthier's clinic. He shortly thereafter developed rectal bleeding with bright red blood pe r rectum initially and then combination of bright red and clot type blood from his rectum. Additiona lly, he had urinary bleeding since that period of time. All of these symptoms have gotten progressiv val worse. He normally monitors his INR at home and found to be within the 1.5 range prior to this. He has not checked it since, however, but typically manages it himself. He notes that his bleeding has gotten progressively worse with larger blood being passed from rectum. He has had some dizziness , lightheadedness, fatigue, malaise and a fast heart rate, and as such, he came to the emergency room with the above-stated complaints. Since being in the hospital, he has received some IV fluids and nish partida heart rate went from the 130s to the low 100s and he feels significant symptomatic improvement. Nish aguilera has never had pain throughout this entire episode, he states. He has had a colonoscopy approximate ly a year ago and states he did not have any diverticulitis or diverticulosis at that point, but did have several polyps removed. He gets colonoscopies on a regular interval every 3 years due to polyps which were all benign by his description. Past Medical History: Hypertension, hyperlipidemia, bicuspid mitral valve, prostate abnormality. Past Surgical History: Includes a prostate biopsy 1 week ago as described and a mitral valve replace ment with mechanical Saint Vel valve by Dr. Dougherty at [facility]. Allergies: INCLUDE ASPIRIN, PEANUT OIL, ALLERGY TO CONTRAST DYE. HOWEVER, HE HAS BEEN PRETREATED BE FORE FOR CONTRAST AND RECEIVED IV CONTRAST BEFORE IN THE PAST WITHOUT ISSUE AFTER BEING PRETREATED. Social History: He denies smoking, alcohol, or recreational drug use. Review of Systems: A 10 point review of systems other than HPI denies other than near syncopal episode as described bibianav willy. Physical Examination: Vital Signs: At the time of my examination, his heart rate is 100, when I saw him, blood pressure 12 2/78, respiratory rate was 20. General: He is awake, alert, oriented. Psychiatric: He is appropriate, conversive, answers questions, smiling, throughout the discussion. Neck: Supple without JVD. Chest: Normal expansion, excursion. Cardiovascular: Regular rhythm, irregular rate at 110 during our examination range, otherwise systol ic click consistent with mechanical valve was appreciated. GI: Soft. No rebound. No guarding. No focal peritonitis. Extremities: No clubbing, cyanosis, edema. Rectal: Bright red and dark clot blood was appreciated. Extremities: No clubbing, cyanosis, edema. Skin: Warm and dry. Laboratory Exam: Revealed a white blood cell count of 11.8, hemoglobin 11.1 initially, however, estrella tocrit 32.3, platelet count was 247. His followup hemoglobin was 8.9 at which point I was consulted. His INR was 1.98, PTT was 39.1, his PT is 21.4. Sodium 135, potassium 4.3, chloride was 105, carbo n dioxide 24, BUN 13, creatinine 1.04, glucose 143. Calcium 9.1, AST was 14, ALT was 46, total bilir ubin 0.5, alkaline phosphatase 42, lipase 21. His UA was extremely turbid with 3+ blood, 1+ urobilin ogen, 75 leukocyte esterase, greater than 50 red blood cells, 20-50 white blood cells, less than 20 b acteria were appreciated. He had imaging including a CT scan of the abdomen and pelvis. CT scan off icially read as mild rectal wall thickening, mucosal thickening, could be related to proctitis. No p neumatosis coli. Followup colonoscopy could be used to further evaluate sigmoid diverticulosis coli. Limited noncontrast exam was performed. Assessment And Plan: 1.This is a 73-year-old male who comes in after a prostate biopsy transrectally approximately a week ago at which point his symptoms occurred. I suspect this bleeding is likely due to a stabbing of th e prostate through the rectal wall, possibly causing rectal bleeding and/or possible concomitant blee ding from the prostate as well as rectum. Given prostate propensity to release urokinase and TPN und er biopsy situations, I suspect the urokinase was released as a reaction to the biopsy thus leading t o increased bleeding complications and I suspect that is what occurred with this patient. I suspect he has postprocedural bleeding due to combination of his prostate biopsy as well as anticoagulation a t baseline. 2.I have recommended standby blood transfusion products if his rectal bleeding continues with produc ts including FFP, platelets, and possibly packed RBCs as whole blood is not available at this time. 3.I will take Gel-Foam and place it in his rectum similar to postoperative procedures after being ap propriately hydrated for hemostasis at this point. 4.Dr. Franz has been consulted and has seen the patient with me and has agreed to perform a colonos copy should he have continued bleeding or if he shows any sign of ongoing bleeding. I have explained the risks, benefits, and alternatives of the above stated plan. We have reached out to Dr. Gauthier covering physicians who have not agreed to accept the patient and have stated that he should be rufus sarah here rather than being transferred to their facility for ongoing complications related to this pr ocedure. 5.We will manage the patient in the interim with possible colonoscopy. However, if colonoscopy is n ondiagnostic and another bleeding source is identified, we will have to manage it depending on the so urce of the bleeding. If manageable by colonoscopy, we will proceed. However, if there appears to b e a non colonic source of bleeding or additional source of bleeding identified, he will likely need a dditional angiography and workup for bleeding sources at a higher level of care as would have to be p retreated for contrast and in addition, should he need Gel-Foam or any other hemostatic procedures ei ther endovascularly or otherwise, he would likely benefit from a facility that has higher capabilitie s than this particular facility. I have explained this to the patient and his , who agreed and d isplayed understanding of above stated plan and agreed to proceed as indicated. Thank you for this interesting consult. YANNI/BISHOP Voice ID: [id number] Report ID: [id number]
--- NOTE | 2023-10-21 15:39 | P.PN ---
Subjective Date of Service: 10/21/23 Chief Complaint: Hematochezia, bleed - s/p prostate biopsies, vs GI bleed, diverticulosis No more rectal bleed since yesterday after Gelfoam was applied to the rectal area. No BM yet. Patient denies any pain. Physical Examination - Vital Signs Temperature: 98.4 F Blood Pressure: 117/68 Pulse: 101 Respirations: 18 Pulse Ox (%): 96 - Studies Microbiology Data (last 24 hrs): 10/19/23 14:28 Clean Catch Urine [place] Count - Final No growth. 10/19/23 14:28 Clean Catch Urine - Final No growth. Assessment And Plan - Plan Physical Exam General: AAOx3 , NAD, obese Neck: Supple, JVD not distended Respiratory: Clear to auscultation bilaterally, Normal air movement Cardiovascular: Normal pulses, RRR, Normal S1 S2, Other, mechanical heart sound. Gastrointestinal: Normoactive bowel sounds, Soft and benign on palpation Musculoskeletal: No clubbing, No swelling. Integumentary: No rashes, No breakdown. Neurological: Normal speech, no focal motor deficit. Vitals Reviewed Problem list GI bleed with sigmoid diverticulosis History prostate biopsy one week ago Syncope History of mechanical AVR Hyperglycemia Assessment and Plan Hemachezia with sigmoid diverticulosis History prostate biopsy one week ago Syncope Acute blood loss anemia CT abdomen pelvis report "Mild rectal wall thickening and mucosal thickening could be related to proctitis. No pneumatosis coli. Follow-up colonoscopy could be useful to further evaluate. Sigmoid diverticulosis coli. A limited non- contrast examination was performed as detailed" Patient was on Lovenox bridge because Coumadin was stopped before the prostate biopsy procedure Status post 2 units PRBC and 1 unit FFP transfused General surgery Dr. Garza and GI Dr. Franz consulted. Bleeding arrested with Gelfoam applied to the rectal area Dr. Franz consulted- recommends applying Gelfoam after BM Monitor for active bleeding. I attempted to reach patient's urologist Dr. Gauthier. I called his phone service to page him or on-call urologist-no response. Monitor for active bleeding. History of mechanical AVR Tachycardia Heparin drip started today Added Coumadin. Monitor for active bleeding, Monitor PTT, PT and INR. History of hypertension/ HLD Patient is currently normotensive. Hold telmisartan. Monitor and resume telmisartan for persistent blood pressure. DVT ppx: Heparin drip, Coumadin. full code
[2023-10-21] MEDS: WARFARIN SODIUM 4 MG TAB PO SCH (17:02)
[2023-10-21] MEDS: ROSUVASTATIN 10 MG TAB PO SCH (21:06)
[2023-10-21 22:16] VITALS: O2SAT 96
[2023-10-22 06:36] LABS: Absolute Lymphocytes (CBC) 1.9 K/uL (0.7-4.9); Hematocrit 24.6 % (39.6-49.0); Lymphocytes % 29.3 % (15.3-44.8); MCV 90.9 fL (80-100); MPV 8.7 fL (7.6-11.3); Platelets 185 thou/uL (152-406)
[2023-10-22 06:51] LABS: Magnesium 2.1 mg/dL (1.6-2.4); Phosphorus 3.3 mg/dL (2.5-4.9); Potassium 3.8 mEq/L (3.5-5.1)
[2023-10-22 06:52] LABS: Protime INR 1.29
[2023-10-22] MEDS: POTASSIUM 25 MEQ EFFERV TAB PO ONE (07:55)
--- NOTE | 2023-10-22 21:03 | PN ---
Date of Progress Note: 10/22/2023 Subjective: The patient was seen this morning for followup. I have reviewed current hospital record s and the patient informed me that he had prostate biopsy with Dr. Gauthier on October 12, 2023, and prior to the prostate biopsy, his warfarin was discontinued and he was on Lovenox 120 mg 2 times a da y for about 5 days and had prostate biopsy on October 12. After prostate biopsy, he restarted his Lovenox and restarted his warfarin also and at home he has been taking warfarin 8 mg 1 day, 9 mg next day, and that has kept his INR around 3, which is within therapeutic range for him. He came into em ergency room with problem of blood in stool. After prostate biopsy, he had blood in the urine in the beginning which subsided and then he started to have blood in stool later part of last week and that is the time he came into emergency room and after he was evaluated, he was admitted to the hospital. The patient has received blood transfusion and fresh frozen plasma since his admission to the [facility]. This morning, when I saw him, he was lying in bed, hemodynamically stable. The patient has bee n evaluated by Dr. Garza, and GI consultation from Dr. Franz has been requested as well over the . Objective: Vital Signs: Reviewed. HEENT: Unremarkable. Lungs: Clear to auscultation. Heart: Sounds normal. Abdomen: Soft. Bowel sounds normal. No guarding, rigidity, tenderness, distention. Extremities: No leg edema. Laboratory Data: Today, white count 6.6, hemoglobin 8.6, platelets 185. Sodium 134, potassium 3.8, chloride 102, bicarb 28, BUN 11, creatinine 0.84, glucose 113. INR 1.29. Impression: 1.Acute blood loss anemia. 2.Gross hematuria after prostate biopsy, resolved. 3.Lower GI bleeding after prostate biopsy. 4.Chronic anticoagulation therapy. 5.Hypertension. 6.Hyperlipidemia. Plan: We will continue the patient's statin therapy. His blood pressure is not high enough to requi re any antihypertensive medication and we will continue to monitor blood pressure and initiate antihy pertensive therapy at appropriate time. The patient is on heparin drip. We will continue that with close monitoring of his anticoagulation therapy. I will go ahead and wait for GI consultation for Dr . Osei before starting him on warfarin. He got 4 mg of warfarin last night. I will discontinue th at and once we have GI consultation available, then we will decide if he can restart his warfarin or not and if the decision is made not to do any endoscopy workup, then our plan will be to discharge ekaterina turner to go home with Lovenox and warfarin. Lovenox should be continued until his INR comes within thera peutic range and then Lovenox can be discontinued at that time. All these details were discussed with him. The patient checks his INR at home, so it will be very co nvenient for him to monitor it closely. I will see him tomorrow for followup. We will repeat blood work tomorrow morning. DEXTER/MODL Voice ID: [id number] Report ID: [id number]
[2023-10-23 02:59] LABS: Absolute Lymphocytes (CBC) 2.2 K/uL (0.7-4.9); Hematocrit 24.8 % (39.6-49.0); Lymphocytes % 32.4 % (15.3-44.8); MPV 8.4 fL (7.6-11.3); Platelets 205 thou/uL (152-406); RBC Red Blood Cell Count 2.72 M/uL (4.33-5.43)
[2023-10-23 03:02] LABS: Protime INR 1.24
[2023-10-23 03:10] LABS: Magnesium 2.1 mg/dL (1.6-2.4); Phosphorus 3.9 mg/dL (2.5-4.9); Potassium 4.1 mEq/L (3.5-5.1)
[2023-10-23 05:02] VITALS: TEMP 97.7
[2023-10-23 08:30] VITALS: BP 98/55
--- NOTE | 2023-10-24 07:10 | DS ---
Date of Discharge: 10/23/2023 Disposition: Discharged to go home. Physical Examination: HEENT: Unremarkable. LUNGS: Clear to auscultation. HEART: Heart sounds normal. ABDOMEN: Soft, bowel sounds normal. No guarding, rigidity, tenderness, or distention. EXTREMITIES: No leg edema. Laboratory Data: Last CBC today; white count 6.7, hemoglobin 8.6, platelets 205. Yesterday's hemogl obin was 8.6 and day before yesterday, hemoglobin was 9.2. Last chemistry today, sodium 135, potassi um 4.1, chloride 104, bicarb 28, BUN 9, creatinine 0.77, glucose 118, magnesium 2.1. When he came in to the hospital on 10/19/2023, white count 11.8, hemoglobin was 11.1, and platelet count of 247. Hospital Course: A 73-year-old pleasant male patient who came into emergency room with blood in [facility]. Please see H and P for more details. The patient had abnormal PSA and had a prostate biopsy on [facility], by Dr. Gauthier. Prior to prostate biopsy, he stopped his warfarin and started taki ng Lovenox 120 mg subcutaneous injection every 12 hours and he stopped Lovenox prior to his prostate biopsy and after the biopsy was done, he restarted Lovenox and warfarin as suggested. His anticoagul ation therapy is being managed by [employer]. The patient had gross hematuria after prostate biops y, which resolved and when hematuria resolved, that was the time he started to have blood in stool. With that, he came into the emergency room after he was evaluated, he was admitted to the hospital. GI consultation from Dr. Franz and General Surgery consultation from Dr. Garza was obtained during this hospitalization and Dr. Garza recommended Gelfoam pad to be applied to rectum area after each bowel movement and that actually did help to resolve his bleeding problem. Hemodynamically, he primitivo ined stable. The patient's anticoagulation therapy was discontinued during this hospitalization and later on he was started on heparin drip per protocol and received 1 dose of warfarin 4 mg on Sunday n ight. No more recurrence of bleeding in last 24 to 36 hours. He was on liquid diet, which was advan lisa to soft diet. We received information from Dr. Gauthier's office that his prostate biopsy came b ack positive for prostate cancer and the patient is aware of this result and he will follow up with Anuja Gauthier upon discharge from our hospital. The patient monitors his INR at home and he communicat es with [employer] office regarding the results and dose adjustment. At home, he was taking warf prem 8 mg one day and 9 mg next day and that has kept his INR around 3. Goal for INR in his case is between 2.5 to 3.5 considering he has prosthetic heart valve. His weight that was documented in the computer for this admission was 273 pounds, which the patient believes is not true as he says his denise ght at home was 250 pounds when he checked it recently at home and I did ask nursing staff to recheck his weight today and it was 247.2 pounds. With that in mind, we will reduce the dose of Lovenox ins tead of 120 mg 2 times a day. I have asked him to use a new prescription of 100 mg 2 times a day for Lovenox. The patient has not received his blood pressure medication during this hospitalization bec ause his blood pressure has remained between 100-110 systolic blood pressure, so he will not need to restart his blood pressure medication at this point yet. Discharge Medications And Instructions: 1.Stop telmisartan. 2.Start warfarin 8 mg 1 day and 9 mg next day. 3.Start Lovenox 100 mg subcutaneous injection every 12 hours. 4.Continue rosuvastatin. 5.Start jmmz-fml-mvhxati iron 65 mg take 1 tablet by mouth daily with food. 6.Start obqf-tqd-eyghqij stool softener, docusate sodium 100 mg 2 times a day. 7.Follow up at my office next week on Sunday or Sunday. 8.Follow up with Dr. Gauthier for prostate cancer. 9.Monitor PT/INR every other day at home and once the INR is 2.5 or higher, stop using Lovenox injec tion at that time. Final Diagnoses: 1.Acute blood loss anemia. 2.Gross hematuria, resolved, after prostate biopsy. 3.Lower GI bleeding. 4.Prosthetic heart valve. 5.Hypertension. 6.Hyperlipidemia. 7.Prostate cancer. DEXTER/MODL Voice ID: [id number] Report ID: [id number]
== END 2023-10-23 10:45 | disposition home or self-care (01) | DRG 920 ==
LOC: ER 11:35 → ERHOLD 17:10 → 2ND 17:28 → 3RD-ICU 10-20 03:22 → 4TH 10-21 09:56 → OBSVTOIN 10-21 15:29
PROVIDERS: ADMIT Internal Medicine; ATTEND Internal Medicine
PROC: 30233K1 Transfusion of Nonautologous Frozen Plasma into Peripheral Vein, Percutaneous Approach (ICD-10-PCS; principal; 2023-10-19)
PROC: 30233N1 Transfusion of Nonautologous Red Blood Cells into Peripheral Vein, Percutaneous Approach (ICD-10-PCS; 2023-10-19)
DX: N99.821 Postprocedural hemorrhage of a genitourinary system organ or structure following other procedure (principal); D62 Acute posthemorrhagic anemia; I10 Essential (primary) hypertension; E78.5 Hyperlipidemia, unspecified; C61 Malignant neoplasm of prostate; K57.30 Diverticulosis of large intestine without perforation or abscess without bleeding; R55 Syncope and collapse; R73.9 Hyperglycemia, unspecified; R31.0 Gross hematuria; Z88.6 Allergy status to analgesic agent; Z95.2 Presence of prosthetic heart valve; Z79.01 Long term (current) use of anticoagulants; Z91.041 Radiographic dye allergy status; Z91.010 Allergy to peanuts; Z91.018 Allergy to other foods; Z79.899 Other long term (current) drug therapy; Y84.8 Other medical procedures as the cause of abnormal reaction of the patient, or of later complication, without mention of misadventure at the time of the procedure
CPT/HCPCS: 36415; 74176; 80048; 80053; 81001; 83036; 83690; 83735; 84100; 85014; 85018; 85025; 85610; 85730; 86850; 86900; 86901; 86920; 87086; 87088; C9113; G0378; J1644; J3430; J7030; J7050; P9016; P9059